=== PATIENT | female | born 1995 | race Caucasian/White ===

== ENCOUNTER 2024-08-10 11:21 | Outpatient (AMB) | payer OTHER, SELFPAY ==
--- NOTE | 2024-08-10 11:22 | A.OFFPC_ITS ---
Vital Signs 08/10/24 11:30 Height 5 ft 6.54 in Weight 193 lb 8 oz BMI 30.7 BP 108/64 Blood Pressure Location Rt brachial Position Sitting Respiration 12 Pulse 90 Pulse Source Pulse Oximeter Temp 98.2 F Temp Source Oral Pulse Oximetry (%) 98 Oxygen Delivery Method Room Air Intake Visit Reasons: CPE Intake Note: New patient visit Applied Research Director Required: No Allergies No Known Allergies Allergy (Verified 08/10/24 11:26) Medication List - Last Reconciled 08/10/24 by Neva Bautista PA-C clonidine HCl PO levothyroxine 50 mcg PO DAILY sertraline 100 mg PO DAILY spironolactone 100 mg PO DAILY Tobacco use date assessed: 08/10/24 Dental Screening Dental Screen Date: 08/10/24 Did you have a dental visit in the last 12 months?: No Did you have a dental problem in the last 6 months where you did not have access to dental care?: No Was dental information given to patient?: Patient declined (doesnt have dental insurance at the moment) HPI CPE HPI Details Patient is a 28-year-old female who presents today to [facility]. She is transferring from. She has a significant past medical history of hypothyroidism, anxiety, depression, PCOS HEENT: Right side neck feeling some discomfort/swelling at times around her lymph nodes. She says that she is not exactly sure what causes this but has been going on for the last few months. -has not seen a dentist in a few years CV: Blood pressure today in the office is. Endo: On levothyroxine 50 mcg daily, states she has been off of this for 2 months. Last TSH was elevated prior to her starting the medication. Psych: has a hx of anxiety and mild depression and is treated with sertraline 100 mg. She is on clonazepam 0.5 mg prn anxiety and uses a couple rxs a year. Takes clonidine rarely. Used to follow with the [facility][note 3]. She would like to see someone to see if she has ADD/autism or some other diagnosis. She has never been hospitalized for her mental health. 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 follows with [facility]. on OCPs. Derm: Would like to see Dermatology for her hyperhidrosis. 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 1. Little interest or pleasure in doing things: several days 2. Feeling down, depressed, or hopeless: not at all 3. Trouble falling or staying asleep, or sleeping too much: more than half the days 4. Feeling tired or having little energy: more than half the days 5. Poor appetite or overeating: several days 6. Feeling bad about yourself - or that you are a failure or have let yourself or your family down: not at all 7. Trouble concentrating on things, such as reading the newspaper or watching television: several days 8. Moving or speaking so slowly that other people could have noticed. Or the opposite - being so fidgety or restless that you have been moving around a lot more than usual: not at all 9. Thoughts that you would be better off or of hurting yourself in some way: not at all Total score: 7 Depression Screening Interpretation: Positive Depression Screening Follow-up: Existing condition, Community Mental Health Worker F/U and Follow-up Visit Requested Depression Screening Done: Yes 46689 - PHQ-9 Billing: Yes Source: Developed by Drs. James Cook, Sheela Dos Santos, Shawn Little and colleagues, with an educational consuelo from [employer]. Thrive Questionnaire Date Thrive assessed: 08/04/24 I am a: Patient What is your living situation today?: I have a steady place to live Within the past 12 months, did the food you bought not last and you didn't have the money to get more?: Never true Within the past 12 months, did you worry whether your food would run out before you got money to buy more?: Never true Do you have trouble paying for medicines?: No Do you have trouble getting transportation to medical appointments?: No Do you have trouble paying your heating and electricity bill?: No Do you have trouble taking care of your child, family member or friend?: No Do you have trouble with day-to-day activities such as bathing, preparing meals, shopping, managing finances, etc.?: No Are you currently unemployed and looking for a job?: No Are you interested in more education?: No Please select the resources that you would like help with: None Currently or been in a relationship where the following occur: No concerns reported THRIVE Score: 0 AUDIT C Alcohol Use Questionnaire (AUDIT-C) 1. How often do you have a drink containing alcohol?: Never 3. How often do you have six or more drinks on one occasion?: Never Total Score: 0 SONJA-7 AMB Questionnaire SONJA-7 Date SONJA - 7 assessed: 08/10/24 Feeling nervous, anxious, or on edge: 1 = Several days Not being able to stop or control worryin = Several days Worrying too much about different things: 1 = Several days Trouble relaxin = Several days Being so restless that it is hard to sit still: 0 = Not at all Becoming easily annoyed or irritable: 2 = More than half the days Feeling afraid as if something awful might happen: 0 = Not at all Total SONJA-7 score (0-4 normal; 5-9 mild; 10-14 moderate; 15-21 severe): 6 Source: Developed by Drs. James Cook, Sheela Dos Santos, Shawn Little and colleagues, with an educational consuelo from [employer]. SONJA-7 Assessment Billing SONJA-7 Assessment Tool: SONJA-7 Assessment 57454 Physical exam (Primary Care) PHQ-9: PHQ-9 Score PHQ-9: Total score 7 08/10/24 11:23 Depression Screening Interpretation: Positive Depression Screening Follow-up: Existing condition, Community Mental Health Worker F/U and Follow-up Visit Requested Thrive Assessment: Date of Thrive Assessment Date Thrive assessed 08/04/24 08/10/24 11:23 Currently or been in a relationship where the following occur: No concerns reported Const Orientation/consciousness: patient oriented x3 HENMT Ears: hearing grossly normal bilaterally Neck Thyroid: Thyroid normal Lymphatic: no lymphadenopathy noted Resp Auscultation: clear to auscultation bilaterally Cardio Rate: regular rate Rhythm: regular rhythm Heart sounds: S1 normal heart sound present and S2 normal heart sound present GI Inspection: Yes normal to inspection Palpation (GI): Soft to palpation and Other GI palpation findings present (nontender, no cva tenderness) Auscultation: normoactive bowel sounds Rectal Exam - Female: deferred Skin General skin exam: no rashes or lesions noted Neuro General: patient oriented x3, gait normal and no focal motor deficits Coding Level of Care Code New Pt Level 3 (14195) Complex EM visit Add On G2211 Diagnoses Difficulty concentrating R41.840 Adjustment disorder with mixed anxiety and depressed mood F43.23 Hypothyroid E03.9 PCOS (polycystic ovarian syndrome) E28.2 LAD (lymphadenopathy) of right cervical region R59.0 Additional Codes SONJA-7 Assessment Billing - SONJA-7 Assessment Tool: SONJA-7 Assessment 45239 ([id number]) PHQ-9 - 82112 - PHQ-9 Billing: Yes ([id number]) Assessment & Plan Assessment & Plan (1) Difficulty concentrating: Code(s): R41.840 - Attention and concentration deficit Category: Medical Plan: Referral to [facility] (2) Adjustment disorder with mixed anxiety and depressed mood: Code(s): F43.23 - Adjustment disorder with mixed anxiety and depressed mood Category: Medical Plan: As above. We will continue current regimen (3) Hypothyroid: Code(s): E03.9 - Hypothyroidism, unspecified Category: Medical Plan: Has been off of levothyroxine for the last couple of months. States that she would go back on this if her TSH was elevated again (4) PCOS (polycystic ovarian syndrome): Code(s): E28.2 - Polycystic ovarian syndrome Category: Medical Plan: Continue spironolactone and follow up with Gynecology (5) LAD (lymphadenopathy) of right cervical region: Code(s): R59.0 - Localized enlarged lymph nodes Category: Medical Plan: Labs and neck ultrasound ordered. Advised to follow up if anything worsens or changes. Orders: Orders Complete Blood Count Auto Diff Today E03.9 - Hypothyroidism, unspecified, E28.2 - Polycystic ovarian syndrome, F43.23 - Adjustment disorder with mixed anxiety and depressed mood, R41.840 - Attention and concentration deficit Vitamin B12 and Folate Today E03.9 - Hypothyroidism, unspecified, E28.2 - Polycystic ovarian syndrome, F43.23 - Adjustment disorder with mixed anxiety and depressed mood, R41.840 - Attention and concentration deficit US soft tiss head and/or neck Today R59.0 - Localized enlarged lymph nodes Thyroglobulin Antibodies Today E03.9 - Hypothyroidism, unspecified Comprehensive [facility] [place]. Panel Fast Today E03.9 - Hypothyroidism, unspecified, E28.2 - Polycystic ovarian syndrome, F43.23 - Adjustment disorder with mixed anxiety and depressed mood, R41.840 - Attention and concentration deficit Hemoglobin A1c Today E03.9 - Hypothyroidism, unspecified, E28.2 - Polycystic ovarian syndrome, F43.23 - Adjustment disorder with mixed anxiety and depressed mood, R41.840 - Attention and concentration deficit, R73.01 - Impaired fasting glucose TSH reflex Free T4 Today E03.9 - Hypothyroidism, unspecified, E28.2 - Polycystic ovarian syndrome, F43.23 - Adjustment disorder with mixed anxiety and depressed mood, R41.840 - Attention and concentration deficit Lipid Panel Today E03.9 - Hypothyroidism, unspecified, E28.2 - Polycystic ovarian syndrome, F43.23 - Adjustment disorder with mixed anxiety and depressed mood, R41.840 - Attention and concentration deficit Thyroid Peroxidase Antibodies Today E03.9 - Hypothyroidism, unspecified Referrals Behavioral Health Referral F43.23 - Adjustment disorder with mixed anxiety and depressed mood, R41.840 - Attention and concentration deficit
[2024-08-10 11:30] VITALS: BP 108/64; PULSE 90; RESP 12; TEMP 36.8; O2SAT 98; BMI 30.7
--- OUTSIDE RECORDS SUMMARY | 2024-08-10 13:26 | XMS_ITS | Clinical Summary ---
Author Organization [facility] Address [address] [place] [address] Care Team Providers Care Retail Assistant Manager Name Role Phone Unavailable Primary Care Provider Unavailabl e Allergies No known active allergies Immunizations Name Administration Dates Next Due Covid-19 (Pfizer) Dilution Required 05/27/2020,0 04/05/2020 Social History Tobacco Use Types Packs/Day Years Used Date Smoking Tobacco: Never Assessed Sex and Gender Information Value Date Recorded Sex Assigned at Not on file Gender Identity Not on file Sexual Orientation Not on file Plan of Treatment Health Maintenance Due Date Last Done Comments Hepatitis B Vaccines (1 of 3 - 3-dose series) 1995 Hepatitis C Screening 1995 Depression Screening 2007 Preventative Health Evaluation 08/18/2013 DTap / Tdap / Td (1 - Tdap) 08/18/2014 Cervical Cancer Screening (Pap Smear) 08/18/2016 COVID-19 Vaccine (2023-2 5 season) 2023 05/27/2020, 04/05/2020 Influenza Vaccine (Season Ended) 2024 Pneumococcal Vaccine Aged Out No long er eligible based on patient's age to complete this topic RSV Ped < 20 months Aged Out No longe r eligible based on patient's age to complete this topic
== END 2024-08-10 12:06 | disposition home or self-care (01) ==
LOC: HO.HMCFM 11:22
PROVIDERS: PCP Physician Assistant; Visit Provider Physician Assistant
DX: R41.840 Attention and concentration deficit (principal); F43.23 Adjustment disorder with mixed anxiety and depressed mood; E03.9 Hypothyroidism, unspecified; E28.2 Polycystic ovarian syndrome; R59.0 Localized enlarged lymph nodes

== ENCOUNTER → 2024-08-10 11:21 | Outpatient (BNVA) | payer OTHER, SELFPAY | PROVIDERS: PCP Physician Assistant; Visit Provider Physician Assistant | DX: F43.23 Adjustment disorder with mixed anxiety and depressed mood (principal); E03.9 Hypothyroidism, unspecified; F41.9 Anxiety disorder, unspecified; F32.A Depression, unspecified; E28.2 Polycystic ovarian syndrome; R41.840 Attention and concentration deficit; R59.0 Localized enlarged lymph nodes | CPT/HCPCS: 96127 ==

== ENCOUNTER 2024-08-12 11:03 | Outpatient (REF) | payer OTHER, SELFPAY ==
[2024-08-12 13:42] LABS: MANUAL DIFF FLAG NO
[2024-08-12 13:44] LABS: Basophils Percent Auto 0.4 % (0-2); Eosinophils Absolute Auto 0.1 X10*3/uL (0.0-0.4); Eosinophils Percent Auto 0.7 % (0-4); Hematocrit 41.1 % (37.0-47.0); Hemoglobin 13.5 g/dl (12.0-16.0); Imm Gran Abs Auto 0.02 X10*3/uL (0.00-0.03); Imm Gran Pct Auto 0.3 % (0.0-0.4); Mean Corpuscular HGB Conc 32.8 g/dl (31.0-35.0); Mean Corpuscular Hemoglobin 28.7 pg (27.0-33.0); Mean Corpuscular Volume 87.3 fL (80.0-98.0); Mean Platelet Volume 10.1 fL (9.4-12.3); Monocytes Absolute Auto 0.5 X10*3/uL (0.1-1.2); Monocytes Percent Auto 5.9 % (2-11); Neutrophils Absolute Auto 4.1 x10*3/uL (2.0-8.3); Neutrophils Percent Auto 53.7 % (45-73); Platelet Count 437 X10*3/uL (160-400); Red Blood Count 4.71 X10*6/uL (4.20-5.50); White Blood Count 7.6 X10*3/uL (4.8-10.8)
[2024-08-12 14:06] LABS: Alanine Aminotransferase 20 U/L (0-31); Albumin Level 4.7 g/dL (3.5-5.0); Alkaline Phosphatase 81 U/L (39-117); Anion Gap 13 (12-20); Aspartate Amino Transferase 25 U/L (5-31); Bilirubin Total 0.3 mg/dL (0.0-1.0); Blood Urea Nitrogen 11 mg/dL (9-16); Calcium 10.1 mg/dL (8.4-10.2); Carbon Dioxide 25 mmol/L (22-29); Chloride 102 mmol/L (96-108); Cholesterol 230 mg/dL (<200); Estimated Glomerular Filt Rate > 60; Glucose Fasting 80 mg/dL (60-99); HDL Cholesterol 65 mg/dL (>40); LDL Cholesterol Calculated 130 mg/dL (<100); Potassium 4.3 mmol/L (3.3-5.1); Sodium 136 mmol/L (135-145); Total Protein 8.4 g/dL (6.5-8.0); Triglycerides 177 mg/dL (<150)
[2024-08-12 14:22] LABS: TSH reflex Free T4 4.09 uIU/mL (0.32-4.0)
[2024-08-12 14:34] LABS: Folate 11.1 ng/mL (> or = 4.0); Vitamin B12 420 pg/mL (200-900)
[2024-08-12 14:45] LABS: Estimated Average Glucose 105 mg/dL; Hemoglobin A1c % 5.3 % (<6.0); Total Hemoglobin (HGBA1C) 3609.3976 umol/L
[2024-08-14 20:28] LABS: Thyroglobulin Antibodies <1 IU/mL (< or = 1); Thyroid Peroxidase Antibodies 120 IU/mL (<9)
== END 2024-08-12 11:04 | disposition home or self-care (01) ==
LOC: HO.HMGCLDS 11:03
PROVIDERS: PCP Physician Assistant; Visit Provider Physician Assistant
DX: E28.2 Polycystic ovarian syndrome (principal); F43.23 Adjustment disorder with mixed anxiety and depressed mood; R41.840 Attention and concentration deficit; R73.01 Impaired fasting glucose; E03.9 Hypothyroidism, unspecified
CPT/HCPCS: 36415; 80053; 80061; 82607; 82746; 83036; 84439; 84443; 85025; 86376; 86800

== ENCOUNTER → 2024-08-23 16:06 | Outpatient (BNVA) | payer OTHER, SELFPAY | PROVIDERS: PCP Physician Assistant; Visit Provider Physician Assistant | DX: Z13.89 Encounter for screening for other disorder (principal) ==

== ENCOUNTER → 2024-08-23 16:06 | Outpatient (AMB) | payer OTHER, SELFPAY ==
--- NOTE | 2024-08-23 15:10 | MHC.PC.OV ---
Intake Visit Reasons: discuss lab results Intake Note: Discuss lab results Casino Accountant Required: No Allergies No Known Allergies Allergy (Verified 08/23/24 16:05) Medication List - Last Reconciled 08/23/24 by Neva Bautista PA-C clonazepam (Klonopin) 0.5 mg PO DAILY PRN 30 days levothyroxine 50 mcg PO DAILY norethindrone ac-eth estradiol 1.5-30 mg-mcg (Junel) 1 tab PO DAILY sertraline 100 mg PO DAILY spironolactone 50 mg PO DAILY Tobacco use date assessed: 08/23/24 Dental Screening Dental Screen Date: 08/10/24 HPI discuss lab results HPI Details Patient is a 29-year-old female who presents today for a lab follow up. Endo: Recent TSH was elevated. Antibody positive. Restarted on levothyroxine and doing well with this. CV: Labs showed elevated cholesterol. States that she understands that there is room in her diet for her to improve. She says that she is going to make some lifestyle modifications. 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 Current occupational exposures/hazards: No Cognitive needs: No Vision needs: No Questionnaire Thrive Questionnaire Date Thrive assessed: 08/04/24 I am a: Patient What is your living situation today?: I have a steady place to live Within the past 12 months, did the food you bought not last and you didn't have the money to get more?: Never true Within the past 12 months, did you worry whether your food would run out before you got money to buy more?: Never true Do you have trouble paying for medicines?: No Do you have trouble getting transportation to medical appointments?: No Do you have trouble paying your heating and electricity bill?: No Do you have trouble taking care of your child, family member or friend?: No Do you have trouble with day-to-day activities such as bathing, preparing meals, shopping, managing finances, etc.?: No Are you currently unemployed and looking for a job?: No Are you interested in more education?: No Please select the resources that you would like help with: None Currently or been in a relationship where the following occur: No concerns reported THRIVE Score: 0 AUDIT C Alcohol Use Questionnaire (AUDIT-C) 1. How often do you have a drink containing alcohol?: Never 3. How often do you have six or more drinks on one occasion?: Never Total Score: 0 SONJA-7 AMB Questionnaire SONJA-7 Date SONJA - 7 assessed: 08/10/24 Source: Developed by Drs. James Cook, Sheela Dos Santos, Shawn Little and colleagues, with an educational consuelo from [employer]. Physical exam (Primary Care) Tobacco/Smoking Status: Tobacco use Status Tobacco use date assessed 08/23/24 08/23/24 16:05 Patient Tobacco Use Status Never used Tobacco 08/23/24 15:10 e-Cigarette/Vaping Use Never Used 08/23/24 15:10 Thrive Assessment: Date of Thrive Assessment Date Thrive assessed 08/04/24 08/23/24 15:10 Currently or been in a relationship where the following occur: No concerns reported Telehealth Telehealth Telehealth Platform: Telephone Location of provider rendering services: practice address Location of patient: address on file Patient Identification confirmed using: Name, : No Patient verbally consented to treatment: Yes Patient verbally consented to billing insurance company: Yes Patient informed of any privacy concerns related to visit: Yes Results Reviewed Results Reviewed: Laboratory Tests 08/12/24 11:40 WBC 7.6 RBC 4.71 Hgb 13.5 Hct 41.1 Plt Count 437 H Sodium 136 Potassium 4.3 Chloride 102 Carbon Dioxide 25 Anion Gap 13 BUN 11 Creatinine 0.82 Estimated GFR > 60 Fasting Glucose 80 Estimat Average Glucose 105 Hemoglobin A1c % 5.3 Calcium 10.1 Total Bilirubin 0.3 AST 25 ALT 20 Alkaline Phosphatase 81 Total Protein 8.4 H Albumin 4.7 Triglycerides 177 H Cholesterol 230 H LDL Cholesterol, Calc 130 H HDL Cholesterol 65 Vitamin B12 420 Folate 11.1 TSH 4.09 H Free T4 0.90 Thyroglobulin Antibody <1 Thyroid Peroxidase Ab 120 H Coding Level of Care Code Tele Est Pt Level 2 (26356) Diagnoses Hypothyroid E03.9 Dyslipidemia E78.5 Time Spent (min) 15 Assessment & Plan Assessment & Plan (1) Hypothyroid: Code(s): E03.9 - Hypothyroidism, unspecified Category: Medical Plan: Continue levothyroxine. We will recheck TSH in 4-6 weeks. (2) Dyslipidemia: Code(s): E78.5 - Hyperlipidemia, unspecified Category: Medical Plan: She is going to work on diet modifications. We will follow up with monitoring lipids.
--- OUTSIDE RECORDS SUMMARY | 2024-08-23 18:39 | XMS_ITS | Clinical Summary ---
Author Organization [facility] Address [address] [place] [address] Care Team Providers Care Administrator Pesticide Name Role Phone Unavailable Primary Care Provider [...]
== END ==
LOC: HO.HMCFM 16:06
PROVIDERS: PCP Physician Assistant; Visit Provider Physician Assistant
DX: E03.9 Hypothyroidism, unspecified (principal); E78.5 Hyperlipidemia, unspecified

== ENCOUNTER 2024-09-27 15:45 | Outpatient (REF) | payer OTHER, SELFPAY ==
--- NOTE | ~2024-09-27 | US_ITS ---
EXAMINATION: US SOFT TISSUE HEAD AND NECK CLINICAL INFORMATION: Localized enlarged lymph nodes. COMPARISON: None available. TECHNIQUE: Linear transducer mckeon-scale and color Doppler examination with attention to the region of the thyroid. FINDINGS: NODES: There is a small enlarged hypoechoic lymph node inferior to right submandibular gland. It 2.3 x 1.0 x 1.5 cm has central vascular flow. No additional lymph nodes seen. US/US soft tiss head and/or neck IMPRESSION: Focal enlarged lymph node, abnormal size inferior to right submandibular gland. A follow-up in 3 months or a simple ultrasound guided biopsy can be performed at Electronically signed by: Donald Zhong MD 09/28/2024 07:15 AM EDT
--- OUTSIDE RECORDS SUMMARY | 2024-09-27 16:21 | XMS_ITS | Clinical Summary ---
Author Organization [facility] Address [address] [place] [address] Care Team Providers Care Production Engineer Name Role Phone Unavailable Primary Care Provider [...] 5 season) 2023 05/27/2020, 04/05/2020 Influenza Vaccine (#1) 2024 Pneumococcal Vaccine Aged Out No long er eligible based on patient's age to complete this topic RSV Ped < 20 months Aged Out No longe r eligible based on patient's age to complete this topic
== END 2024-09-27 15:46 | disposition home or self-care (01) ==
LOC: HO.US 15:45
PROVIDERS: PCP Physician Assistant; Visit Provider Physician Assistant
DX: R59.0 Localized enlarged lymph nodes (principal)
CPT/HCPCS: 76536

== ENCOUNTER → 2024-09-27 15:49 | Outpatient (BNV) | payer OTHER, SELFPAY | PROVIDERS: PCP Physician Assistant; Visit Provider Radiology Diagnostic Radiology | DX: R59.0 Localized enlarged lymph nodes (principal) | CPT/HCPCS: 76536 ==

== ENCOUNTER 2024-10-05 15:59 | Outpatient (AMB) | payer OTHER, SELFPAY ==
--- NOTE | 2024-10-05 15:56 | A.OFFPC_ITS ---
Intake Visit Reasons: Ultrasound Results Intake Note: Ultrasound results. Navy Material Inspector Required: No Allergies No Known Allergies Allergy (Verified 10/05/24 15:56) Medication List - Last Reconciled 10/05/24 by Neva Bautista PA-C clonazepam (Klonopin) 0.5 mg PO DAILY PRN 30 days levothyroxine 50 mcg PO DAILY norethindrone ac-eth estradiol 1.5-30 mg-mcg (Junel) 1 tab PO DAILY sertraline 100 mg PO DAILY spironolactone 100 mg PO DAILY Tobacco use date assessed: 10/05/24 Dental Screening Dental Screen Date: 08/10/24 HPI Ultrasound Results HPI Details Patient is a 29-year-old female who presents today for a lab follow up. Endo: Recent TSH was elevated. Antibody positive. Restarted on levothyroxine and doing well with this. CV: following a low fat diet for her elevated lipids. Psych: on sertraline 100 mg. stable feels that anxiety has been a little increased since the neck u/s. HEENT: she states she still noticed some discomfort and states she read the ultrasound and wants this biopsied. 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 James Cook, Sheela Dos Santos, Shawn Little and colleagues, with an educational consuelo from [employer]. Physical exam (Primary Care) Tobacco/Smoking Status: Tobacco use Status Tobacco use date assessed 10/05/24 10/05/24 15:58 Patient Tobacco Use Status Never used Tobacco 10/05/24 15:58 e-Cigarette/Vaping Use Never Used 10/05/24 15:58 Thrive Assessment: Date of Thrive Assessment Date Thrive assessed 08/04/24 10/05/24 15:58 Telehealth Telehealth Telehealth Platform: Telephone Location of provider rendering services: practice address Location of patient: address on file Patient Identification confirmed using: Name, : Yes Telehealth method: voice only Patient verbally consented to treatment: Yes Patient verbally consented to billing insurance company: Yes Patient informed of any privacy concerns related to visit: Yes Minutes spent on Phone/Video with Pt.: 12 Coding Level of Care Code Tele Est Pt Level 2 (17012) Diagnoses LAD (lymphadenopathy) of right cervical region R59.0 Dyslipidemia E78.5 Hypothyroid E03.9 Assessment & Plan Assessment & Plan (1) LAD (lymphadenopathy) of right cervical region: Code(s): R59.0 - Localized enlarged lymph nodes Category: Medical Plan: reviewed u/s referral to gen surgery labs ordered (2) Dyslipidemia: Code(s): E78.5 - Hyperlipidemia, unspecified Category: Medical Plan: following low fat diet will recheck in a few months (3) Hypothyroid: Code(s): E03.9 - Hypothyroidism, unspecified Category: Medical Plan: labs ordered advised to recheck Orders: Referrals General Surgery Referral R59.0 - Localized enlarged lymph nodes
--- OUTSIDE RECORDS SUMMARY | 2024-10-05 16:01 | XMS_ITS | Clinical Summary ---
Author Organization [facility] Address [address] [place] [address] Care Team Providers Care Shell Plater Name Role Phone Unavailable Primary Care Provider [...]
== END 2024-10-05 17:08 | disposition home or self-care (01) ==
LOC: HO.HMCFM 15:59
PROVIDERS: PCP Physician Assistant; Visit Provider Physician Assistant
DX: R59.0 Localized enlarged lymph nodes (principal); E78.5 Hyperlipidemia, unspecified; E03.9 Hypothyroidism, unspecified

== ENCOUNTER 2024-11-15 12:41 | Outpatient (REF) | payer OTHER, SELFPAY ==
[2024-11-15 13:34] LABS: MANUAL DIFF FLAG NO
[2024-11-15 15:05] LABS: Hematocrit 40.0 % (37.0-47.0); Hemoglobin 13.0 g/dl (12.0-16.0); Imm Gran Abs Auto 0.02 X10*3/uL (0.00-0.03); Imm Gran Pct Auto 0.2 % (0.0-0.4); Lymphocytes Absolute Auto 3.6 X10*3/uL (1.2-4.9); Mean Corpuscular HGB Conc 32.5 g/dl (31.0-35.0); Mean Corpuscular Hemoglobin 28.2 pg (27.0-33.0); Mean Corpuscular Volume 86.8 fL (80.0-98.0); NRBC Abs Auto 0.000 X10*3/uL (0.0-0.012); NRBC Pct Auto 0.0 /100WBC (0.0-0.2); Platelet Count 409 X10*3/uL (160-400); Red Blood Count 4.61 X10*6/uL (4.20-5.50); White Blood Count 8.4 X10*3/uL (4.8-10.8)
[2024-11-15 15:50] LABS: Alanine Aminotransferase 25 U/L (0-31); Albumin Level 4.7 g/dL (3.5-5.0); Alkaline Phosphatase 88 U/L (39-117); Anion Gap 14 (12-20); Aspartate Amino Transferase 26 U/L (5-31); Blood Urea Nitrogen 10 mg/dL (9-16); Calcium 10.0 mg/dL (8.4-10.2); Carbon Dioxide 24 mmol/L (22-29); Chloride 104 mmol/L (96-108); Cholesterol 227 mg/dL (<200); Estimated Glomerular Filt Rate > 60; HDL Cholesterol 61 mg/dL (>40); Potassium 4.0 mmol/L (3.3-5.1); Sodium 138 mmol/L (135-145); Total Protein 8.6 g/dL (6.5-8.0); Triglycerides 184 mg/dL (<150)
== END 2024-11-15 12:42 | disposition home or self-care (01) ==
LOC: HO.LAB 12:41
PROVIDERS: PCP Physician Assistant; Visit Provider Surgery
DX: R59.0 Localized enlarged lymph nodes (principal); E03.9 Hypothyroidism, unspecified; E78.5 Hyperlipidemia, unspecified; R79.89 Other specified abnormal findings of blood chemistry
CPT/HCPCS: 36415; 80053; 80061; 84443; 85025

== ENCOUNTER 2024-11-15 12:41 | Outpatient (AMB) | payer OTHER, SELFPAY ==
[2024-11-15 12:43] VITALS: BP 118/76; PULSE 89; BMI 31.8
--- NOTE | 2024-11-15 12:43 | A.OFFVIS_ITS ---
Vital Signs 11/15/24 12:43 Height 5 ft 6 in Weight 197 lb BMI 31.8 BP 118/76 Blood Pressure Location Rt brachial Position Sitting Pulse 89 Intake Visit Reasons: Localized enlarged lymph nodes Intake Note: Patient referred by pcp Neva Bautista PA-C for evaluation and treatment of localized enlarged lymph nodes. Patient c/o: on and off pressure, tender to touch. Recently diagnosed w/ Kristine's disease. Imaging: Head and Neck US: 09-27-2024 Dental Assistant Instructor Required: No Accompanied by: Self / Same As Patient Allergies No Known Allergies Allergy (Verified 11/15/24 12:49) Medication List - Last Reconciled 11/15/24 by Jonah Card MD clonazepam (Klonopin) 0.5 mg PO DAILY PRN 30 days levothyroxine 50 mcg PO DAILY norethindrone ac-eth estradiol 1.5-30 mg-mcg (Junel) 1 tab PO DAILY sertraline 100 mg PO DAILY spironolactone 100 mg PO DAILY HPI HPI Localized enlarged lymph nodes: Details: 29 year old female referred for an enlarged right neck lymph node. She states that she had it healing this vague tenderness on the right neck area under the mandible for about a year now. She was sent for an ultrasound by her primary care physician and this showed a focal enlarged lymph node inferior to the right submandibular gland. She states that she does not actually feel any mass on the area. She has a history of Kristine's thyroiditis She denies any fever or chills. She denies any night sweats or any other systemic symptoms. She denies any lesions or dental caries. 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 Current occupational exposures/hazards: No Cognitive needs: No Hearing needs: No Vision needs: No Review of Systems Const Denies chills and Denies fever(s) Card Denies chest pain, Denies dyspnea and Denies dyspnea on exertion Resp Denies cough, Denies dyspnea and Denies dyspnea on exertion GI Denies hematochezia and Denies change in bowel habits Denies hematuria Musc Denies back pain and Denies limited range of motion Neuro Denies focal weakness and Denies convulsions Psych Denies depression and Denies mood swings Physical Exam Vital Signs: Last Vital Signs Pulse 89 11/15/24 12:43 BP 118/76 11/15/24 12:43 BMI result Body Mass Index 31.8 Const General: comfortable and no acute distress Orientation/consciousness: patient oriented x3 HEENT Other: no oral lesions no dental caries Neck Other: I am unable to palpate any obvious enlarged lymph node Neck: Yes no lymphadenopathy Resp Auscultation: clear to auscultation bilaterally Cardio Rhythm: regular rhythm GI Palpation (GI): Soft to palpation, nontender and no guarding Neuro General: patient oriented x3 Assessment & Plan Assessment & Plan (1) Cervical lymphadenopathy: Code(s): R59.0 - Localized enlarged lymph nodes Category: Medical Plan: She has had this vague tenderness on the right neck for about a year. She had an ultrasound showing this focal enlarged lymph node, 2.3 x 1 x 1.5 cm in the submandibular area. A repeat ultrasound was recommended versus biopsy I explained these findings to her. I told her that since it is been more than 2 months since her ultrasound, I would just repeat her ultrasound next month. I will see her again in the office after that to review this and decide on the Nexplanon in her care I also explained to her that since she has had this for about a year now without any worsening or any obvious enlarged lymph node on palpation, it is unlikely that these were present a neoplastic process. Orders: Orders US soft tiss head and/or neck 1 Month R59.0 - Localized enlarged lymph nodes Coding Level of Care Code New Pt Level 3 (27928) Diagnoses Cervical lymphadenopathy R59.0
--- OUTSIDE RECORDS SUMMARY | 2024-11-15 16:05 | XMS_ITS | Clinical Summary ---
Author Organization [facility] Address [address] [place] [address] Care Team Providers Care Manager Intensive Care Unit Name Role Phone Unavailable Primary Care Provider [...] Cancer Screening (Pap Smear) 08/18/2016 COVID-19 Vaccine (3 - 2024-2 6 season) 2024 05/27/2020, 04/05/2020 Influenza Vaccine (#1) 2024 Pneumococcal Vaccine Aged Out No long er eligible based on patient's age to complete this topic RSV Ped < 20 months Aged Out No longe r eligible based on patient's age to complete this topic
== END 2024-11-15 13:15 | disposition home or self-care (01) ==
LOC: HO.HGS 12:42
PROVIDERS: PCP Physician Assistant; Visit Provider Surgery
DX: R59.0 Localized enlarged lymph nodes (principal)
CPT/HCPCS: 99203

== ENCOUNTER 2024-12-13 15:18 | Outpatient (AMB) | payer OTHER, SELFPAY ==
--- NOTE | 2024-12-13 15:31 | A.OFFPC_ITS ---
Vital Signs 12/13/24 15:33 Height 5 ft 6 in Weight 200 lb BMI 32.3 BP 96/62 Blood Pressure Location Rt brachial Position Sitting Respiration 12 Pulse 95 Pulse Source Pulse Oximeter Temp 98.4 F Temp Source Oral Pulse Oximetry (%) 98 Oxygen Delivery Method Room Air Intake Visit Reasons: cpe Intake Note: Physical Independent Living Instructor Required: No Allergies No Known Allergies Allergy (Verified 12/13/24 15:33) Medication List - Last Reconciled 12/13/24 by Neva Bautista PA-C clonazepam (Klonopin) 0.5 mg PO DAILY PRN 30 days levothyroxine 50 mcg PO DAILY norethindrone ac-eth estradiol 1.5-30 mg-mcg (Junel) 1 tab PO DAILY sertraline 100 mg PO DAILY spironolactone 100 mg PO DAILY Tobacco use date assessed: 12/13/24 Dental Screening Dental Screen Date: 08/10/24 HPI cpe HPI Details Patient is a 29-year-old female who presents today for a physical Endo: Tolerating levothyroxine well. Last TSH was WNL CV: following a low fat diet. Psych: on sertraline 100 mg. She does not know if this is very effective for her. She says that she still lacks motivation. HEENT: She did see the general surgeon for the lymph node on the right side of her neck and states was told to have a follow up ultrasound which is scheduled later this month. 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 Current occupational exposures/hazards: No Cognitive needs: No Hearing needs: No Vision needs: No Questionnaire Thrive Questionnaire Date Thrive assessed: 08/04/24 I am a: Patient What is your living situation today?: I have a steady place to live Within the past 12 months, did the food you bought not last and you didn't have the money to get more?: Never true Within the past 12 months, did you worry whether your food would run out before you got money to buy more?: Never true Do you have trouble paying for medicines?: No Do you have trouble getting transportation to medical appointments?: No Do you have trouble paying your heating and electricity bill?: No Do you have trouble taking care of your child, family member or friend?: No Do you have trouble with day-to-day activities such as bathing, preparing meals, shopping, managing finances, etc.?: No Are you currently unemployed and looking for a job?: No Are you interested in more education?: No Please select the resources that you would like help with: None Currently or been in a relationship where the following occur: No concerns reported THRIVE Score: 0 AUDIT C Alcohol Use Questionnaire (AUDIT-C) 1. How often do you have a drink containing alcohol?: Never 3. How often do you have six or more drinks on one occasion?: Never Total Score: 0 SONJA-7 AMB Questionnaire SONJA-7 Date SONJA - 7 assessed: 08/10/24 Source: Developed by Drs. James Cook, Sheela Dos Santos, Shawn Little and colleagues, with an educational consuelo from [employer]. Physical exam (Primary Care) Vital Signs: Last Vital Signs Temp 98.4 F 12/13/24 15:33 Pulse 95 12/13/24 15:33 Resp 12 12/13/24 15:33 BP 96/62 12/13/24 15:33 Pulse Ox 98 12/13/24 15:33 Oxygen Delivery Method Room Air 12/13/24 15:33 BMI result Body Mass Index 32.3 Tobacco/Smoking Status: Tobacco use Status Tobacco use date assessed 12/13/24 12/13/24 15:38 Patient Tobacco Use Status Never used Tobacco 12/13/24 15:38 e-Cigarette/Vaping Use Never Used 12/13/24 15:38 Thrive Assessment: Date of Thrive Assessment Date Thrive assessed 08/04/24 12/13/24 15:38 Currently or been in a relationship where the following occur: No concerns reported Const Orientation/consciousness: patient oriented x3 HENGA Ears: hearing grossly normal bilaterally and TM's normal bilaterally General nose exam: No nasal polyps present Face and sinus: Yes sinuses nontender Mouth: Normal oral and palatal mucosa present Eyes Pupils: Equal, round and reactive pupils present EOM: EOMs intact bilaterally Neck Neck: Yes full ROM and Yes no lymphadenopathy Thyroid: Thyroid normal Chest Chest palpation & inspection: normal inspection of the chest Resp Auscultation: clear to auscultation bilaterally Cardio Rate: regular rate Rhythm: regular rhythm Heart sounds: S1 normal heart sound present and S2 normal heart sound present Peripheral pulses: Peripheral pulses 2+ throughout GI Other: Soft, nontender Auscultation: normal bowel sounds Rectal Exam - Female: deferred General: Yes no CVA tenderness Back/Spine/Pelvis Other: Nontender Back: no CVA tenderness Skin General skin exam: no rashes or lesions noted Neuro General: patient oriented x3, gait normal, CN's II-XI intact bilaterally and deep tendon reflexes 2+ bilaterally Cranial nerves: Yes Equal, round and reactive pupils present Motor exam (neuro): 5/5 motor strength present throughout Sensory Exam: double simultaneous stimulation for sensation normal Coordination: [id number] test normal and Romberg test negative Extrem General: Yes normal to inspection and Yes full ROM Psych Affect: normal affect Attitude: cooperative Thought process: Normal thought process present Thought content: Normal thought content present Insight: Good insight present (Psych) Judgement: Good judgement present (Psych) Coding Level of Care Code Est Pt Prev Care 18-39y(52055) Diagnoses Routine general medical examination at a health care facility Z00.00 Hypothyroid E03.9 Dyslipidemia E78.5 Elevated serum protein level R77.9 Adjustment disorder with mixed anxiety and depressed mood F43.23 Assessment & Plan Assessment & Plan (1) Routine general medical examination at a health care facility: Code(s): Z00.00 - Encounter for general adult medical examination without abnormal findings Plan: Health maintenance reviewed. (2) Hypothyroid: Code(s): E03.9 - Hypothyroidism, unspecified Category: Medical Plan: Continue levothyroxine (3) Dyslipidemia: Code(s): E78.5 - Hyperlipidemia, unspecified Category: Medical Plan: Has a family history of this We will continue to monitor (4) Elevated serum protein level: Code(s): R77.9 - Abnormality of plasma protein, unspecified Category: Medical Plan: Labs ordered. Advised to complete labs today (5) Adjustment disorder with mixed anxiety and depressed mood: Code(s): F43.23 - Adjustment disorder with mixed anxiety and depressed mood Category: Medical Plan: We will reduce sertraline to 50 mg. We will start Wellbutrin. Discussed risks and benefits and adverse effects of this medication. Orders: Orders Complete Blood Count Auto Diff 12/13/24 E03.9 - Hypothyroidism, unspecified, E78.5 - Hyperlipidemia, unspecified, R77.9 - Abnormality of plasma protein, unspecified Liver Panel 12/13/24 E03.9 - Hypothyroidism, unspecified, E78.5 - Hyperlipidemia, unspecified, R77.9 - Abnormality of plasma protein, unspecified Medications: New bupropion HCl XL (Wellbutrin XL) 150 mg PO QAM 90 tabs 0RF sertraline (Zoloft) 50 mg PO DAILY 90 tabs 0RF Discontinued sertraline Discontinued Reason: Doctor's Order 100 mg PO DAILY 90 tabs 1RF Patient Instructions: go down to 50 mg of zoloft x 1 week then start wellbutrin
[2024-12-13 15:33] VITALS: BP 96/62; PULSE 95; RESP 12; TEMP 36.9; O2SAT 98; BMI 32.3
--- OUTSIDE RECORDS SUMMARY | 2024-12-13 18:54 | XMS_ITS | Clinical Summary ---
Author Organization [facility] Address [address] [place] [address] Care Team Providers Care Pediatric Geneticist Name Role Phone Unavailable Primary Care Provider [...]
== END 2024-12-13 15:59 | disposition home or self-care (01) ==
LOC: HO.HMCFM 15:19
PROVIDERS: PCP Physician Assistant; Visit Provider Physician Assistant
DX: Z00.00 Encounter for general adult medical examination without abnormal findings (principal); E03.9 Hypothyroidism, unspecified; E78.5 Hyperlipidemia, unspecified; R77.9 Abnormality of plasma protein, unspecified; F43.23 Adjustment disorder with mixed anxiety and depressed mood

== ENCOUNTER 2024-12-13 15:18 | Outpatient (REF) | payer OTHER, SELFPAY ==
[2024-12-13 18:17] LABS: MANUAL DIFF FLAG NO
[2024-12-13 18:36] LABS: Hematocrit 39.5 % (37.0-47.0); Hemoglobin 12.6 g/dl (12.0-16.0); Imm Gran Abs Auto 0.02 X10*3/uL (0.00-0.03); Imm Gran Pct Auto 0.3 % (0.0-0.4); Lymphocytes Absolute Auto 3.3 X10*3/uL (1.2-4.9); Mean Corpuscular HGB Conc 31.9 g/dl (31.0-35.0); Mean Corpuscular Hemoglobin 28.0 pg (27.0-33.0); Mean Corpuscular Volume 87.8 fL (80.0-98.0); NRBC Abs Auto 0.000 X10*3/uL (0.0-0.012); NRBC Pct Auto 0.0 /100WBC (0.0-0.2); Platelet Count 438 X10*3/uL (160-400); Red Blood Count 4.50 X10*6/uL (4.20-5.50); White Blood Count 8.0 X10*3/uL (4.8-10.8)
[2024-12-13 18:39] LABS: Alanine Aminotransferase 21 U/L (0-31); Albumin Level 4.7 g/dL (3.5-5.0); Alkaline Phosphatase 87 U/L (39-117); Aspartate Amino Transferase 22 U/L (5-31); Total Protein 8.3 g/dL (6.5-8.0)
[2024-12-13 19:17] LABS: Erythrocyte Sedimentation Rate 47 MM/HR (0-20)
[2024-12-18 09:54] LABS: PEU-Protein Creat Ratio Rand 0.089 (0.024-0.184); PEU-Rand. Prot/Creat Ratio 89 mg/g creat (24-184); PEU-Random Ur. Gamma Globulin 0 %; PEU-Random Urine A1 Globulin 0 %; PEU-Random Urine A2 Globulin 0 %; PEU-Random Urine Albumin 100 %; PEU-Random Urine Beta Globulin 0 %; PEU-Random Urine Creatinine 45 mg/dL (20-275); PEU-Random Urine Protein 4 mg/dL (5-24)
[2024-12-19 19:14] LABS: Prot Elec - Albumin 4.3 g/dL (3.8-4.8); Prot Elec - Alpha1 0.4 g/dL (0.2-0.3); Prot Elec - Alpha2 1.1 g/dL (0.5-0.9); Prot Elec - Beta 1 0.6 g/dL (0.4-0.6); Prot Elec - Beta 2 0.3 g/dL (0.2-0.5); Prot Elec - Gamma 1.3 g/dL (0.8-1.7); Prot Elec - Total Protein 8.0 g/dL (6.1-8.1)
== END 2024-12-13 15:19 | disposition home or self-care (01) ==
LOC: HO.WFDLDS 15:18
PROVIDERS: PCP Physician Assistant; Visit Provider Physician Assistant
DX: Z00.00 Encounter for general adult medical examination without abnormal findings (principal); E03.9 Hypothyroidism, unspecified; E78.5 Hyperlipidemia, unspecified; R77.8 Other specified abnormalities of plasma proteins; Z79.899 Other long term (current) drug therapy
CPT/HCPCS: 80076; 82570; 84156; 84165; 84166; 85025; 85652; 86140

== ENCOUNTER 2024-12-27 15:23 | Outpatient (REF) | payer OTHER, SELFPAY ==
--- NOTE | ~2024-12-27 | US_ITS ---
EXAMINATION: US HEAD AND NECK SOFT TISSUE CLINICAL INFORMATION: Right submandibular lymph node. COMPARISON: Previous exam July 2024 TECHNIQUE: Linear transducer mckeon-scale and color Doppler examination the right submandibular region FINDINGS: There is an abnormal-appearing right level 2 lymph node adjacent to the right submandibular gland measuring 2.8 x 1 x 2 cm there this is enlarged and diffusely hypoechoic with absent fatty hilum. This is increased in size from prior ultrasound when this measured 2.3 x 1 x 1.5 cm. There is an additional level 2 right submandibular lymph node that measures 2.2 x 0.8 x 1.2 cm. This is newly appreciated. This is slightly enlarged and appears diffusely hypoechoic without fatty hilum as well. US/US soft tiss head and/or neck IMPRESSION: Interval increase in size in abnormal appearing right level 2 submandibular lymph node measuring 2.8 x 1 x 2 cm. Newly appreciated smaller but also abnormal appearing right level 2 lymph node measuring 2.2 x 0.8 x 1.2 cm. Fine needle aspiration recommended. Electronically signed by: Marleen Loomis MD 12/27/2024 03:54 PM EDT
--- OUTSIDE RECORDS SUMMARY | 2024-12-27 19:44 | XMS_ITS | Clinical Summary ---
Author Organization [facility] Address [address] [place] [address] Care Team Providers Care Capacity Analyst Name Role Phone Unavailable Primary Care Provider [...]
== END 2024-12-27 15:24 | disposition home or self-care (01) ==
LOC: HO.HMGCX 15:23
PROVIDERS: PCP Physician Assistant; Visit Provider Surgery
DX: R59.0 Localized enlarged lymph nodes (principal)
CPT/HCPCS: 76536

== ENCOUNTER → 2024-12-27 15:24 | Outpatient (BNV) | payer OTHER, SELFPAY | PROVIDERS: PCP Physician Assistant; Visit Provider Radiology Diagnostic Radiology | DX: R59.0 Localized enlarged lymph nodes (principal) | CPT/HCPCS: 76536 ==

== ENCOUNTER 2024-12-28 11:00 | Outpatient (AMB) | payer OTHER, SELFPAY ==
--- NOTE | 2024-12-28 11:16 | A.OFFVIS_ITS ---
Vital Signs 12/28/24 11:23 Height 5 ft 6 in Weight 199 lb 15.983 oz BMI 32.3 Intake Visit Reasons: US follow-up Intake Note: This patient presents for US follow-up. Pt c/o; no complaints at this time. Ophthalmic Technician Required: No Accompanied by: Spouse Allergies No Known Allergies Allergy (Verified 12/28/24 11:24) Medication List - Last Reconciled 12/28/24 by Jonah Card MD bupropion HCl XL (Wellbutrin XL) 150 mg PO QAM clonazepam (Klonopin) 0.5 mg PO DAILY PRN 30 days levothyroxine 50 mcg PO DAILY norethindrone ac-eth estradiol 1.5-30 mg-mcg (Junel) 1 tab PO DAILY sertraline (Zoloft) 50 mg PO DAILY spironolactone 100 mg PO DAILY HPI HPI US follow-up: Details: I had seen her in October, because of an enlarged right submandibular lymph node. I had ordered for a follow up ultrasound in 3 months. She had this done earlier this week and she is here to review the findings. She says that she really does not feel the lump but she does have some discomfort on the area. She denies swallowing issues. She denies any fever or night sweats. 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 Current occupational exposures/hazards: No Cognitive needs: No Hearing needs: No Vision needs: No Review of Systems Const Denies chills and Denies fever(s) Card Denies chest pain, Denies dyspnea and Denies dyspnea on exertion Resp Denies cough, Denies dyspnea and Denies dyspnea on exertion GI Denies hematochezia and Denies change in bowel habits Denies hematuria Musc Denies back pain and Denies limited range of motion Neuro Denies focal weakness and Denies convulsions Psych Denies depression and Denies mood swings Physical Exam Vital Signs: BMI result Body Mass Index 32.3 Const General: comfortable and no acute distress Neck Other: I am unable to palpate the enlarged submandibular gland lymph node on examination Resp Effort & Inspection: normal respiratory effort Cardio Rate: regular rate Assessment & Plan Assessment & Plan (1) Cervical lymphadenopathy: Code(s): R59.0 - Localized enlarged lymph nodes Category: Medical Plan: Her follow up ultrasound shows an interval increase in the size in the abnormal appearing right level 2 submandibular lymph node hearing 2.8 x 1 x 2 cm. There is note of a new but smaller level 2 lymph node measuring 2.2 x 0.8 x 1.2 cm. A fine-needle aspiration biopsy was recommended by the radiologist Since I am unable to palpate for the lymph node, I am going to schedule her for an ultrasound-guided biopsy. I will see her in the office after that. I explained to her the plan as above. Coding Level of Care Code Est Pt Level 3 (82883) Diagnoses Cervical lymphadenopathy R59.0
[2024-12-28 11:23] VITALS: BMI 32.3
--- OUTSIDE RECORDS SUMMARY | 2024-12-28 13:47 | XMS_ITS | Clinical Summary ---
Author Organization [facility] Address [address] [place] [address] Care Team Providers Care Certified Public Accountant Name Role Phone Unavailable Primary Care Provider [...]
== END 2024-12-28 12:10 | disposition home or self-care (01) ==
LOC: HO.HGS 11:01
PROVIDERS: PCP Physician Assistant; Visit Provider Surgery
DX: R59.0 Localized enlarged lymph nodes (principal)
CPT/HCPCS: 99213

== ENCOUNTER 2025-01-18 13:36 | Outpatient (AMB) | payer OTHER, SELFPAY ==
--- NOTE | 2025-01-18 13:49 | A.OFFPC_ITS ---
Vital Signs 01/18/25 13:50 Height 5 ft 6 in Weight 198 lb 4 oz BMI 32.0 BP 116/72 Blood Pressure Location Rt brachial Position Sitting Respiration 12 Pulse 111 H Pulse Source Pulse Oximeter Temp 98.4 F Temp Source Oral Pulse Oximetry (%) 97 Oxygen Delivery Method Room Air Intake Visit Reasons: med check Intake Note: Medication follow up Gun Perforator Loader Required: No Allergies No Known Allergies Allergy (Verified 01/18/25 13:51) Tobacco use date assessed: 12/13/24 Dental Screening Dental Screen Date: 08/10/24 HPI med check HPI Details Patient is a 29-year-old female who presents today for a follow up. Endo: Tolerating levothyroxine well. Last TSH was WNL CV: following a low fat diet. Psych: on sertraline 100 mg and wellbutrin 150 mg. She does not know if this is very effective for her. She says that she still lacks motivation. HEENT: She did see the general surgeon for the lymph node on the right side of her neck and recently had repeat imaging which recommended biopsy. She is scheduled on 02/01. She also is scheduled on 02/15 with heme/Onc for her lymphadenopathy and abnormal CBC. 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 Current occupational exposures/hazards: No Cognitive needs: No Hearing needs: No Vision needs: No Questionnaire Thrive Questionnaire Date Thrive assessed: 08/04/24 I am a: Patient What is your living situation today?: I have a steady place to live Within the past 12 months, did the food you bought not last and you didn't have the money to get more?: Never true Within the past 12 months, did you worry whether your food would run out before you got money to buy more?: Never true Do you have trouble paying for medicines?: No Do you have trouble getting transportation to medical appointments?: No Do you have trouble paying your heating and electricity bill?: No Do you have trouble taking care of your child, family member or friend?: No Do you have trouble with day-to-day activities such as bathing, preparing meals, shopping, managing finances, etc.?: No Are you currently unemployed and looking for a job?: No Are you interested in more education?: No Please select the resources that you would like help with: None Currently or been in a relationship where the following occur: No concerns reported THRIVE Score: 0 SONJA-7 AMB Questionnaire SONJA-7 Date SONJA - 7 assessed: 08/10/24 Source: Developed by Drs. James Cook, Sheela Dos Santos, Shawn Little and colleagues, with an educational consuelo from [employer]. Physical exam (Primary Care) Vital Signs: Last Vital Signs Temp 98.4 F 01/18/25 13:50 Pulse 111 H 01/18/25 13:50 Resp 12 01/18/25 13:50 BP 116/72 01/18/25 13:50 Pulse Ox 97 01/18/25 13:50 Oxygen Delivery Method Room Air 01/18/25 13:50 BMI result Body Mass Index 32.0 Tobacco/Smoking Status: Tobacco use Status Tobacco use date assessed 12/13/24 01/18/25 13:55 Patient Tobacco Use Status Never used Tobacco 01/18/25 13:55 e-Cigarette/Vaping Use Never Used 01/18/25 13:55 Thrive Assessment: Date of Thrive Assessment Date Thrive assessed 08/04/24 01/18/25 13:55 Currently or been in a relationship where the following occur: No concerns reported Const Orientation/consciousness: patient oriented x3 HENMT Ears: hearing grossly normal bilaterally and TM's normal bilaterally General nose exam: Normal nasal mucous membranes and turbinates present Face and sinus: Yes sinuses nontender Mouth: Normal oral and palatal mucosa present Throat: Yes posterior oropharynx normal Neck Other: There is slight enlargement of the right cervical lymph node when compared to the left. Thyroid: Thyroid normal Resp Auscultation: clear to auscultation bilaterally Cardio Rate: regular rate Rhythm: regular rhythm Heart sounds: S1 normal heart sound present and S2 normal heart sound present GI Inspection: Yes normal to inspection Palpation (GI): Soft to palpation and Other GI palpation findings present (nontender, no cva tenderness) Auscultation: normoactive bowel sounds Rectal Exam - Female: deferred Skin General skin exam: no rashes or lesions noted Neuro General: patient oriented x3, gait normal and no focal motor deficits Coding Level of Care Code Complex visit Add On G2211 Diagnoses LAD (lymphadenopathy) of right cervical region R59.0 Elevated serum protein level R77.9 Assessment & Plan Assessment & Plan (1) LAD (lymphadenopathy) of right cervical region: Code(s): R59.0 - Localized enlarged lymph nodes Category: Medical Plan: Has a biopsy scheduled. We will follow up pending test results (2) Elevated serum protein level: Code(s): R77.9 - Abnormality of plasma protein, unspecified Category: Medical Plan: Has follow up arranged with Heme-Onc Plan We will repeat labs in follow up in a few months. Sooner if needed. Patient understands and agrees with the plan. Orders: Orders Complete Blood Count Auto Diff 01/18/25 R59.0 - Localized enlarged lymph nodes, R77.9 - Abnormality of plasma protein, unspecified Basic Metabolic Panel 01/18/25 R59.0 - Localized enlarged lymph nodes, R77.9 - Abnormality of plasma protein, unspecified Liver Panel 01/18/25 R59.0 - Localized enlarged lymph nodes, R77.9 - Abnormality of plasma protein, unspecified C Reactive Protein 01/18/25 R59.0 - Localized enlarged lymph nodes, R77.9 - Abnormality of plasma protein, unspecified
[2025-01-18 13:50] VITALS: BP 116/72; PULSE 111; RESP 12; TEMP 36.9; O2SAT 97; BMI 32.0
--- OUTSIDE RECORDS SUMMARY | 2025-01-18 19:02 | XMS_ITS | Clinical Summary ---
Author Organization [facility] Address [address] [place] [address] Care Team Providers Care Hazardous Materials Analyst Name Role Phone Unavailable Primary Care [...]
== END 2025-01-18 14:27 | disposition home or self-care (01) ==
LOC: HO.HMCFM 13:37
PROVIDERS: PCP Physician Assistant; Visit Provider Physician Assistant
DX: R59.0 Localized enlarged lymph nodes (principal); R77.9 Abnormality of plasma protein, unspecified

== ENCOUNTER 2025-01-18 13:36 | Outpatient (REF) | payer OTHER, SELFPAY ==
[2025-01-18 17:42] LABS: MANUAL DIFF FLAG NO
[2025-01-18 17:53] LABS: Hematocrit 40.3 % (37.0-47.0); Hemoglobin 13.2 g/dl (12.0-16.0); Imm Gran Abs Auto 0.02 X10*3/uL (0.00-0.03); Imm Gran Pct Auto 0.2 % (0.0-0.4); Lymphocytes Absolute Auto 2.8 X10*3/uL (1.2-4.9); Mean Corpuscular HGB Conc 32.8 g/dl (31.0-35.0); Mean Corpuscular Hemoglobin 28.4 pg (27.0-33.0); Mean Corpuscular Volume 86.9 fL (80.0-98.0); NRBC Abs Auto 0.000 X10*3/uL (0.0-0.012); NRBC Pct Auto 0.0 /100WBC (0.0-0.2); Platelet Count 446 X10*3/uL (160-400); Red Blood Count 4.64 X10*6/uL (4.20-5.50); White Blood Count 8.4 X10*3/uL (4.8-10.8)
[2025-01-18 18:29] LABS: Alanine Aminotransferase 23 U/L (0-31); Albumin Level 4.9 g/dL (3.5-5.0); Alkaline Phosphatase 97 U/L (39-117); Anion Gap 13 (12-20); Aspartate Amino Transferase 26 U/L (5-31); Blood Urea Nitrogen 13 mg/dL (9-16); Calcium 9.9 mg/dL (8.4-10.2); Carbon Dioxide 25 mmol/L (22-29); Chloride 104 mmol/L (96-108); Estimated Glomerular Filt Rate > 60; Potassium 4.0 mmol/L (3.3-5.1); Sodium 138 mmol/L (135-145); Total Protein 8.6 g/dL (6.5-8.0)
== END 2025-01-18 13:37 | disposition home or self-care (01) ==
LOC: HO.WFDLDS 13:36
PROVIDERS: PCP Physician Assistant; Visit Provider Physician Assistant
DX: R59.0 Localized enlarged lymph nodes (principal); R77.9 Abnormality of plasma protein, unspecified; Z79.899 Other long term (current) drug therapy
CPT/HCPCS: 36415; 80048; 80076; 85025; 86140

== ENCOUNTER 2025-02-01 12:38 | Outpatient (REF) | payer OTHER, SELFPAY ==
--- NOTE | ~2025-02-01 | US_ITS ---
PROCEDURE: US GUIDED FINE-NEEDLE ASPIRATION CLINICAL INFORMATION: Enlarged right submandibular lymph node COMPARISON: Previous soft tissue neck ultrasounds August and November 2024 TECHNIQUE: Procedure risks and benefits including bleeding, infection and nondiagnostic specimen were discussed with the patient and informed consent was obtained. The right submandibular region was prepped and draped in the usual sterile fashion. The skin and soft tissues were anesthetized with 1% lidocaine plain. Using ultrasound guidance and a 25-gauge needle, access to the enlarged right submandibular lymph node was obtained. 4 separate 25-gauge FNA specimens were obtained. 2 specimens were placed in flow cytometry solution and 2 specimens placed in CytoLyt. FINDINGS: There is a 2.8 x 1 x 1.8 cm diffusely hypoechoic, lymph node adjacent to the right submandibular gland that was targeted for fine-needle aspiration. US/US guided fine needle asp IMPRESSION: Ultrasound-guided right submandibular lymph node fine-needle aspiration. Electronically signed by: Marleen Loomis MD 02/01/2025 04:39 PM [facility] - [place], [place]
[2025-02-01] MEDS: Lidocaine HCl 1 % MPF 5 ML VIAL SUBCUT (14:02)
== END 2025-02-01 12:39 | disposition home or self-care (01) ==
LOC: HO.US 12:38
PROVIDERS: PCP Physician Assistant; Visit Provider Surgery
DX: R59.0 Localized enlarged lymph nodes (principal)
CPT/HCPCS: 10005; 88173; 88305; J2003

== ENCOUNTER → 2025-02-01 12:40 | Outpatient (BNV) | payer OTHER, SELFPAY | PROVIDERS: PCP Physician Assistant; Visit Provider Radiology Diagnostic Radiology | DX: R59.0 Localized enlarged lymph nodes (principal) | CPT/HCPCS: 10005 ==

== ENCOUNTER → 2025-02-15 14:40 | Outpatient (BNV) | payer OTHER, SELFPAY | PROVIDERS: PCP Physician Assistant; Referring Provider Physician Assistant; Visit Provider Nurse Practitioner Family | DX: R59.0 Localized enlarged lymph nodes (principal); D75.839 Thrombocytosis, unspecified | CPT/HCPCS: 99204 ==

== ENCOUNTER 2025-02-20 14:54 | Outpatient (REF) | payer OTHER, SELFPAY ==
--- OUTSIDE RECORDS SUMMARY | 2025-02-20 16:12 | XMS_ITS | Clinical Summary ---
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
[2025-02-20 18:35] LABS: Baso%MD 0.4 %; Eos%MD 0.5 %; Hematocrit 38.7 % (37.0-47.0); Hemoglobin 12.6 g/dl (12.0-16.0); IG%MD 0.1 %; Lymph%MD 32.1 %; Mean Corpuscular HGB Conc 32.6 g/dl (31.0-35.0); Mean Corpuscular Hemoglobin 28.6 pg (27.0-33.0); Mean Corpuscular Volume 87.8 fL (80.0-98.0); Mono%MD 6.4 %; NRBC Abs Auto 0.000 X10*3/uL (0.0-0.012); NRBC Pct Auto 0.0 /100WBC (0.0-0.2); Neut%MD 60.5 %; Platelet Count 448 X10*3/uL (160-400); Red Blood Count 4.41 X10*6/uL (4.20-5.50); White Blood Count 7.9 X10*3/uL (4.8-10.8)
[2025-02-20 19:01] LABS: Alanine Aminotransferase 29 U/L (0-31); Albumin Level 4.5 g/dL (3.5-5.0); Alkaline Phosphatase 87 U/L (39-117); Anion Gap 13 (12-20); Aspartate Amino Transferase 23 U/L (5-31); Blood Urea Nitrogen 14 mg/dL (9-16); Calcium 9.7 mg/dL (8.4-10.2); Carbon Dioxide 25 mmol/L (22-29); Chloride 103 mmol/L (96-108); Estimated Glomerular Filt Rate > 60; Iron 56 mcg/dL (30-160); Percent Iron Saturation 16 % (15-50); Potassium 4.1 mmol/L (3.3-5.1); Sodium 137 mmol/L (135-145); Total Iron Binding Capacity 347 mcg/dL (228-428); Total Protein 8.0 g/dL (6.5-8.0); Unsaturated Iron Binding 291 ug/dL; Uric Acid 4.5 mg/dL (2.4-5.7)
[2025-02-20 19:09] LABS: Band Neutrophils Percent 0 % (3-5); Lymphocytes Absolute Manual 2.8 X10*3/uL (1.2-4.9); Lymphocytes Percent Manual 35 % (20-40); Monocytes Absolute Manual 0.4 X10*3/uL (0.1-1.2); Monocytes Percent Manual 5 % (2-11); Neutrophils Absolute Manual 4.7 X10*3/uL (2.0-8.3); Neutrophils Percent Manual 60 % (45-73)
[2025-02-20 19:10] LABS: RBC Morphology NORMAL
[2025-02-20 19:27] LABS: Ferritin 82 ng/mL (10-122)
[2025-02-20 20:21] LABS: Reticulocytes Absolute 0.088 X10*6/uL (0.026-0.095)
== END 2025-02-20 14:55 | disposition home or self-care (01) ==
LOC: HO.WFDLDS 14:54
PROVIDERS: Visit Provider Nurse Practitioner Family
DX: Z01.84 Encounter for antibody response examination (principal); R59.0 Localized enlarged lymph nodes; D75.839 Thrombocytosis, unspecified
CPT/HCPCS: 36415; 80053; 82728; 82784; 83010; 83540; 83615; 84550; 85007; 85027; 85045; 85652; 86038; 86140; 86334; 86431